=== PATIENT | male | born 1970 | race Caucasian/White ===

== ENCOUNTER 2018-12-28 14:18 | Emergency (ER) | payer MEDICARE, OTHER ==
[~2018-12-28] VITALS: Ht 167.6 cm; Wt 75.0 kg
[~2018-12-28 14:18] MED LIST: DIVA500T52 PO; QUET200T PO; QUET300T2 PO; SERT100T12 PO; TRAZ-252 PO
[2018-12-28] MEDS ORDERED: LORazepam 2 MG TABLET PO ONE ×2 (15:00→22:30)
[2018-12-28] MEDS ORDERED: HALOPERIDOL 5 MG TABLET PO ONE (15:00)
[2018-12-28 15:21] LABS: BASOPHILS % (AUTO) 0.5 % (0.0-2.0); EOSINOPHILS % (AUTO) 0 % (1.0-6.0); HEMATOCRIT 45.4 % (41-53); HEMOGLOBIN 15.3 g/dL (13.5-17.5); LYMPHOCYTES # (AUTO) 1.8 K/uL (1.0-4.8); LYMPHOCYTES % (AUTO) 14.5 % (22.0-44.0); MEAN CORPUSCULAR HEMOGLOBIN 30.6 pg (26.0-34.0); MEAN CORPUSCULAR HGB CONC 33.6 G/dL (31.0-37.0); MEAN CORPUSCULAR VOLUME 91 fL (80-100); MONOCYTES % (AUTO) 8.2 % (2.0-9.0); NEUTROPHILS # (AUTO) 9.6 K/uL (1.8-7.7); NEUTROPHILS % (AUTO) 76.8 % (40.0-70.0); PLATELET COUNT (AUTO) 393 K/uL (150-450); RED BLOOD CELL COUNT(AUTO) 4.99 MIL/uL (4.50-5.90); RED CELL DISTRIBUTION WIDTH 14.2 % (11.5-14.5)
[2018-12-28 15:39] LABS: ANION GAP 12 mmol/L (8-16); CALCIUM, TOTAL 9.6 mg/dL (8.8-10.5); CARBON DIOXIDE 25 mmol/L (22-29); CHLORIDE 105 mmol/L (98-107); CREATININE 1.03 mg/dL (0.60-1.30); GLOMERULAR FILTR. RATE CALC > 60 mL/min (>60); GLUCOSE,RANDOM 117 mg/dL (70-110); POTASSIUM 3.9 mmol/L (3.5-5.1); SODIUM SERUM 142 mmol/L (136-145); UREA NITROGEN, BLOOD 23 mg/dL (7-18)
[2018-12-28 15:45] LABS: ALANINE AMINOTRANSFERASE 35 U/L (12-78); ALBUMIN 4.3 g/dL (3.4-5.0); ALKALINE PHOSPHATASE 79 U/L (46-116); ASPARTATE AMINOTRANSFERASE 97 U/L (15-37); BILIRUBIN,TOTAL 0.5 mg/dL (0.1-1.0); TOTAL PROTEIN, SERUM 7.9 g/dL (6.4-8.2); VALPROIC ACID 74 mcg/mL (50-100)
[2018-12-28 20:32] LABS: AMPHET/METH SCREEN,URINE NEGATIVE (NEGATIVE); BARBITURATE SCREEN, URINE NEGATIVE (NEGATIVE); BENZODIAZEPINES SCREEN,URINE NEGATIVE (NEGATIVE); CANNABINOID SCREEN,URINE NEGATIVE (NEGATIVE); COCAINE SCREEN,URINE NEGATIVE (NEGATIVE); METHADONE SCREEN, URINE NEGATIVE (NEGATIVE); OPIATE SCREEN,URINE NEGATIVE (NEGATIVE); PHENCYCLIDINE SCREEN,URINE NEGATIVE (NEGATIVE)
[2018-12-28 21:00] VITALS: BP 134/80
[2018-12-28] MEDS ORDERED: SERTRALINE HCL 100 MG TABLET PO ONE (22:30)
== END 2018-12-28 23:03 | disposition home or self-care (01) ==
LOC: EMS 14:19
DX: R45.1 Restlessness and agitation (principal); F32.9 Major depressive disorder, single episode, unspecified; F20.9 Schizophrenia, unspecified; Z79.899 Other long term (current) drug therapy
CPT/HCPCS: 36415; 80053; 80164; 80307; 85025; 99284; G0480

== ENCOUNTER 2019-01-29 18:25 | Emergency (ER) | payer MEDICARE, OTHER ==
[~2019-01-29] VITALS: Ht 167.6 cm; Wt 81.8 kg
[2019-01-29] MEDS ORDERED: LORazepam 2 MG/ML VIAL IVP ONE (18:45)
[2019-01-29 19:17] LABS: ANION GAP 14 mmol/L (8-16); CALCIUM, TOTAL 8.7 mg/dL (8.8-10.5); CARBON DIOXIDE 21 mmol/L (22-29); CHLORIDE 104 mmol/L (98-107); CREATININE 1.06 mg/dL (0.60-1.30); GLOMERULAR FILTR. RATE CALC > 60 mL/min (>60); GLUCOSE,RANDOM 162 mg/dL (70-110); POTASSIUM 3.6 mmol/L (3.5-5.1); SODIUM SERUM 139 mmol/L (136-145); UREA NITROGEN, BLOOD 22 mg/dL (7-18)
[2019-01-29 19:23] LABS: VALPROIC ACID 4 mcg/mL (50-100)
[2019-01-29] MEDS ORDERED: VALPROATE SODIUM 1,000 MG in DEXTROSE 5%-WATER 100 ML IV ONE (19:45)
[2019-01-29 21:02] VITALS: BP 123/77
== END 2019-01-29 21:50 | disposition home or self-care (01) ==
LOC: EMS 18:25
DX: G40.802 Other epilepsy, not intractable, without status epilepticus (principal); F32.9 Major depressive disorder, single episode, unspecified; F20.9 Schizophrenia, unspecified; Z79.899 Other long term (current) drug therapy
CPT/HCPCS: 36415; 70450; 80048; 80164; 96365; 96375; 99285; J2060; J3490; J7060

== ENCOUNTER 2019-06-12 18:05 | Inpatient (IN) | payer MEDICARE, MEDICAID ==
[~2019-06-12] VITALS: Ht 165.1 cm; Wt 81.2 kg
[2019-06-12 18:41] LABS: BASOPHILS % (AUTO) 0.8 % (0.0-2.0); EOSINOPHILS % (AUTO) 0.1 % (1.0-6.0); HEMATOCRIT 46.9 % (41-53); HEMOGLOBIN 16.1 g/dL (13.5-17.5); LYMPHOCYTES # (AUTO) 1.6 K/uL (1.0-4.8); LYMPHOCYTES % (AUTO) 15.5 % (22.0-44.0); MEAN CORPUSCULAR HEMOGLOBIN 31.1 pg (26.0-34.0); MEAN CORPUSCULAR HGB CONC 34.2 G/dL (31.0-37.0); MEAN CORPUSCULAR VOLUME 91 fL (80-100); MONOCYTES # (AUTO) 0.8 K/uL (0.1-1.0); MONOCYTES % (AUTO) 7.6 % (2.0-9.0); NEUTROPHILS # (AUTO) 7.7 K/uL (1.8-7.7); PLATELET COUNT (AUTO) 364 K/uL (150-450); RED BLOOD CELL COUNT(AUTO) 5.16 MIL/uL (4.50-5.90); RED CELL DISTRIBUTION WIDTH 13.6 % (11.5-14.5)
[2019-06-12 19:07] LABS: ANION GAP 15 mmol/L (8-16); CARBON DIOXIDE 19 mmol/L (22-29); CHLORIDE 102 mmol/L (98-107); CREATININE 0.92 mg/dL (0.60-1.30); GLOMERULAR FILTR. RATE CALC > 60 mL/min (>60); GLUCOSE,RANDOM 118 mg/dL (70-110); POTASSIUM 3.5 mmol/L (3.5-5.1); SODIUM SERUM 136 mmol/L (136-145); UREA NITROGEN, BLOOD 19 mg/dL (7-18)
[2019-06-12 19:13] LABS: ALANINE AMINOTRANSFERASE 33 U/L (12-78); ALBUMIN 4.4 g/dL (3.4-5.0); ALKALINE PHOSPHATASE 78 U/L (46-116); ASPARTATE AMINOTRANSFERASE 36 U/L (15-37); BILIRUBIN,TOTAL 0.5 mg/dL (0.1-1.0); TOTAL PROTEIN, SERUM 7.8 g/dL (6.4-8.2)
[2019-06-12] MEDS ORDERED: LORazepam 1 MG TABLET PO ONE (20:30)
[2019-06-13] MEDS ORDERED: ZOLPIDEM TARTRATE 10 MG TABLET PO PRN
[2019-06-13] MEDS ORDERED: HALOPERIDOL 5 MG TABLET PO PRN
[2019-06-13 02:20] VITALS: BP 129/81
[2019-06-13 02:58] VITALS: BP 129/81
[2019-06-13] MEDS ORDERED: INFLUENZA VIRUS VACCINE QVS 2019-20 (3YR+)/PF 60 MCG/0.5 ML SYRINGE IM ONE (03:30)
[2019-06-13] MEDS ORDERED: TEMAZEPAM 15 MG CAPSULE PO PRN (06:30)
[2019-06-13 08:00] LABS: HEMOGLOBIN A1C 5.6 % (4.5-6.2)
[2019-06-13 08:35] VITALS: BP 70/50
[2019-06-13 08:40] LABS: CHOL/HDL RATIO 4.7 (4.2-7.3); FREE T4 (FREE THYROXINE) 1.43 ng/dL (0.76-1.46)
[2019-06-13] MEDS: LORazepam 2 MG TABLET PO PRN (14:23)
[2019-06-13 19:17] VITALS: BP 119/62
[2019-06-13] MEDS: QUEtiapine FUMARATE 300 MG TABLET PO SCH (20:38)
[2019-06-13] MEDS: TraZODone HCL 50 MG TABLET PO SCH (20:38)
[2019-06-14] MEDS: SERTRALINE HCL 100 MG TABLET PO SCH (08:23)
[2019-06-14 09:54] VITALS: BP 128/86
[2019-06-14 18:06] VITALS: BP 131/100
[2019-06-14] MEDS: TraZODone HCL 50 MG TABLET PO SCH (21:54)
[2019-06-14] MEDS: QUEtiapine FUMARATE 300 MG TABLET PO SCH (21:54)
[2019-06-15 05:54] VITALS: BP 118/74
[2019-06-15] MEDS: SERTRALINE HCL 100 MG TABLET PO SCH (09:19)
[2019-06-15 12:44] VITALS: BP 132/74
[2019-06-15 16:30] VITALS: BP 136/97
[2019-06-15] MEDS: TraZODone HCL 50 MG TABLET PO SCH (22:08)
[2019-06-15] MEDS: QUEtiapine FUMARATE 300 MG TABLET PO SCH (22:09)
[2019-06-16 01:43] VITALS: BP 125/77
[2019-06-16 08:09] VITALS: BP 119/86
[2019-06-16] MEDS: SERTRALINE HCL 100 MG TABLET PO SCH (10:07)
[2019-06-16] MEDS ORDERED: BISACODYL 5 MG EC TABLET PO PRN (13:45)
[2019-06-16 18:02] VITALS: BP 121/87
[2019-06-16] MEDS: QUEtiapine FUMARATE 300 MG TABLET PO SCH (20:10)
[2019-06-16] MEDS: TraZODone HCL 50 MG TABLET PO SCH (20:11)
[2019-06-17 02:17] VITALS: BP 123/79
[2019-06-17] MEDS: SERTRALINE HCL 100 MG TABLET PO SCH (08:58)
[2019-06-17 09:19] VITALS: BP 133/86
[2019-06-17 19:36] VITALS: BP 138/98
[2019-06-17] MEDS: TraZODone HCL 50 MG TABLET PO SCH (20:23)
[2019-06-17] MEDS: QUEtiapine FUMARATE 300 MG TABLET PO SCH (20:23)
[2019-06-18 05:03] VITALS: BP 132/95
[2019-06-18 08:30] VITALS: BP 126/79
[2019-06-18] MEDS: SERTRALINE HCL 100 MG TABLET PO SCH (09:47)
[2019-06-18] MEDS: LORazepam 2 MG TABLET PO PRN (10:52)
[2019-06-18 16:56] VITALS: BP 117/71
[2019-06-18] MEDS: DIVALPROEX SODIUM 250 MG DR TABLET PO SCH (20:49)
[2019-06-18] MEDS: TraZODone HCL 50 MG TABLET PO SCH (20:49)
[2019-06-18] MEDS: QUEtiapine FUMARATE 300 MG TABLET PO SCH (20:49)
[2019-06-19 08:20] VITALS: BP 104/77
[2019-06-19] MEDS: SERTRALINE HCL 100 MG TABLET PO SCH (09:18)
[2019-06-19] MEDS: DIVALPROEX SODIUM 250 MG DR TABLET PO SCH ×2 (09:19→21:05)
[2019-06-19 19:48] VITALS: BP 126/80
[2019-06-19] MEDS: TraZODone HCL 50 MG TABLET PO SCH (21:05)
[2019-06-19] MEDS: QUEtiapine FUMARATE 300 MG TABLET PO SCH (21:05)
[2019-06-20 00:22] VITALS: BP 122/93
[2019-06-20 08:30] VITALS: BP 122/82
[2019-06-20] MEDS: DIVALPROEX SODIUM 250 MG DR TABLET PO SCH ×2 (08:42→21:04)
[2019-06-20] MEDS: SERTRALINE HCL 100 MG TABLET PO SCH (08:42)
[2019-06-20 16:45] VITALS: BP 115/74
[2019-06-20] MEDS: QUEtiapine FUMARATE 300 MG TABLET PO SCH (21:04)
[2019-06-20] MEDS: TraZODone HCL 50 MG TABLET PO SCH (21:04)
[2019-06-21 00:50] VITALS: BP 116/74
[2019-06-21 09:25] VITALS: BP 134/67
[2019-06-21] MEDS: SERTRALINE HCL 100 MG TABLET PO SCH (09:38)
[2019-06-21] MEDS: DIVALPROEX SODIUM 250 MG DR TABLET PO SCH ×2 (09:38→20:51)
[2019-06-21 20:06] VITALS: BP 122/75
[2019-06-21] MEDS: TraZODone HCL 50 MG TABLET PO SCH (20:50)
[2019-06-21] MEDS: QUEtiapine FUMARATE 300 MG TABLET PO SCH (20:50)
[2019-06-22 08:30] VITALS: BP 103/75
[2019-06-22] MEDS: DIVALPROEX SODIUM 250 MG DR TABLET PO SCH ×2 (08:56→20:58)
[2019-06-22] MEDS: SERTRALINE HCL 100 MG TABLET PO SCH (08:57)
[2019-06-22 17:46] VITALS: BP 112/66
[2019-06-22] MEDS: TraZODone HCL 50 MG TABLET PO SCH (20:57)
[2019-06-22] MEDS: QUEtiapine FUMARATE 300 MG TABLET PO SCH (20:57)
[2019-06-23 08:00] VITALS: BP 146/59
[2019-06-23] MEDS: DIVALPROEX SODIUM 250 MG DR TABLET PO SCH ×2 (09:33→20:38)
[2019-06-23] MEDS: SERTRALINE HCL 100 MG TABLET PO SCH (09:33)
[2019-06-23 18:30] VITALS: BP 120/86
[2019-06-23] MEDS: QUEtiapine FUMARATE 300 MG TABLET PO SCH (20:38)
[2019-06-23] MEDS: TraZODone HCL 50 MG TABLET PO SCH (20:38)
[2019-06-24] MEDS: DIVALPROEX SODIUM 250 MG DR TABLET PO SCH (08:07)
[2019-06-24] MEDS: SERTRALINE HCL 100 MG TABLET PO SCH (08:07)
[2019-06-24 08:55] VITALS: BP 130/80
[2019-06-24] MEDS ORDERED: DIVA-76 PO (12:02)
[2019-06-24] MEDS ORDERED: QUET300T18 PO (12:02)
[2019-06-24] MEDS ORDERED: TRAZ-252 PO (12:02)
[2019-06-24] MEDS ORDERED: SERT100T12 PO (12:02)
== END 2019-06-24 18:30 | disposition home or self-care (01) | DRG 885 ==
LOC: EMS 18:06 → 3EI 06-13 01:10
DX: F25.1 Schizoaffective disorder, depressive type (principal); E78.00 Pure hypercholesterolemia, unspecified; E78.5 Hyperlipidemia, unspecified; F79 Unspecified intellectual disabilities; G40.909 Epilepsy, unspecified, not intractable, without status epilepticus; G80.9 Cerebral palsy, unspecified; J45.909 Unspecified asthma, uncomplicated; G47.00 Insomnia, unspecified; K59.00 Constipation, unspecified; Z79.899 Other long term (current) drug therapy; Z82.49 Family history of ischemic heart disease and other diseases of the circulatory system; Z91.5 Personal history of self-harm
CPT/HCPCS: 83036; 84439; G0480

== ENCOUNTER 2024-02-23 22:04 | Inpatient (IN) | payer MEDICARE, MEDICAID ==
[~2024-02-23] VITALS: Ht 160 cm; Wt 86.1 kg
[~2024-02-23 22:04] MED LIST changes: +DIVA-111 PO; -DIVA500T52 PO; -QUET200T PO; +QUET300T19 PO; -QUET300T2 PO; +SERT-440 PO; -SERT100T12 PO
[2024-02-23 22:40] LABS: EOSINOPHILS % (AUTO) 2.2 % (1.0-6.0); HEMATOCRIT 43.9 % (41-53); HEMOGLOBIN 14.9 g/dL (13.5-17.5); LYMPHOCYTES # (AUTO) 2.7 K/uL (1.0-4.8); LYMPHOCYTES % (AUTO) 39.7 % (22.0-44.0); MEAN CORPUSCULAR HEMOGLOBIN 31.9 pg (26.0-34.0); MEAN CORPUSCULAR HGB CONC 33.9 G/dL (31.0-37.0); MEAN CORPUSCULAR VOLUME 94 fL (80-100); MONOCYTES # (AUTO) 0.6 K/uL (0.1-1.0); MONOCYTES % (AUTO) 9.2 % (2.0-9.0); NEUTROPHILS # (AUTO) 3.3 K/uL (1.8-7.7); NEUTROPHILS % (AUTO) 47.9 % (40.0-70.0); PLATELET COUNT (AUTO) 284 K/uL (150-450); RED BLOOD CELL COUNT(AUTO) 4.66 MIL/uL (4.50-5.90); RED CELL DISTRIBUTION WIDTH 12.9 % (11.5-14.5); WHITE BLOOD COUNT (AUTO) 6.8 K/uL (4.5-11.0)
[2024-02-23 22:49] LABS: ANION GAP 6 mmol/L (8-16); CALCIUM, TOTAL 9.7 mg/dL (8.8-10.5); CARBON DIOXIDE 29 mmol/L (22-29); CHLORIDE 103 mmol/L (98-107); CREATININE 1.12 mg/dL (0.60-1.30); GLOMERULAR FILTR. RATE CALC > 60 mL/min (>60); GLUCOSE,RANDOM 107 mg/dL (70-110); POTASSIUM 4.1 mmol/L (3.5-5.1); SODIUM SERUM 138 mmol/L (136-145); UREA NITROGEN, BLOOD 16 mg/dL (7-18)
[2024-02-23 23:10] LABS: ALCOHOL, BLOOD (SERUM) < 3 mg/dL (0-10)
[2024-02-24 00:30] LABS: COVID AG,FIA SOURCE NASAL SWAB
[2024-02-24 00:58] LABS: SARS-COV2 (COVID) ANTIGEN,FIA Negative (Negative)
[2024-02-24 02:28] LABS: ALCOHOL, URINE DRUG SCREEN NEGATIVE (NEGATIVE); AMPHET/METH SCREEN,URINE NEGATIVE (NEGATIVE); BARBITURATE SCREEN, URINE NEGATIVE (NEGATIVE); BENZODIAZEPINES SCREEN,URINE NEGATIVE (NEGATIVE); CANNABINOID SCREEN,URINE NEGATIVE (NEGATIVE); COCAINE SCREEN,URINE NEGATIVE (NEGATIVE); METHADONE SCREEN, URINE NEGATIVE (NEGATIVE); OPIATE SCREEN,URINE NEGATIVE (NEGATIVE); PHENCYCLIDINE SCREEN,URINE NEGATIVE (NEGATIVE)
[2024-02-24] MEDS ORDERED: HALOPERIDOL 5 MG TABLET PO PRN (02:45)
[2024-02-24 02:53] LABS: APPEARANCE,URINE CLEAR (CLEAR); BILIRUBIN,URINE NEGATIVE (NEGATIVE); COLOR,URINE LIGHT YELLOW (YELLOW); GLUCOSE, URINE (UA) NEGATIVE (NEGATIVE); KETONES,URINE NEGATIVE (NEGATIVE); LEUKOCYTE ESTERASE ,URINE NEGATIVE (NEGATIVE); NITRATE,URINE NEGATIVE (NEGATIVE); OCCULT BLOOD,URINE NEGATIVE (NEGATIVE); PROTEIN,URINE NEGATIVE (NEGATIVE); SPECIFIC GRAVITIY, URINE 1.014 (1.003-1.030); UROBILINOGEN,URINE <=1.0 mg/dL (<=1.0)
[2024-02-24] MEDS ORDERED: BIMA2.5D4 OU (03:21)
[2024-02-24] MEDS ORDERED: QUET200T PO (03:21)
[2024-02-24] MEDS ORDERED: CITA-144 PO (03:21)
[2024-02-24] MEDS ORDERED: TRIA15CR49 TP (03:21)
[2024-02-24] MEDS ORDERED: FLUT16SP NASAL (03:21)
[2024-02-24] MEDS ORDERED: CHLO100T42 PO (03:21)
[2024-02-24] MEDS ORDERED: TRAZ-257 PO (03:21)
[2024-02-24 03:35] VITALS: BP 133/89; PULSE 82; RESP 18; TEMP 98; O2SAT 95
[2024-02-24 05:47] VITALS: BP 133/89; PULSE 82; RESP 18; TEMP 98
[2024-02-24] MEDS ORDERED: LOPERAMIDE HCL 2 MG CAPSULE PO PRN (07:30)
[2024-02-24] MEDS ORDERED: GuaiFENesin/D-METHORPHAN [SUGAR-FREE] 200-20MG/10 ML SYRUP UDCUP PO PRN (07:30)
[2024-02-24] MEDS ORDERED: PROMETHAZINE HCL 25 MG TABLET PO PRN (07:30)
[2024-02-24] MEDS ORDERED: OLANZapine 5 MG RAPDIS TABLET PO PRN (07:30)
[2024-02-24] MEDS ORDERED: TUBERCULIN, PURIFIED PROTEIN DERIVATIVE 5 TU/0.1 ML SYRINGE ID ONE (07:30)
[2024-02-24] MEDS ORDERED: MAGNESIUM HYDROXIDE SUSPENSION 30 ML UDCUP PO PRN (07:30)
[2024-02-24] MEDS ORDERED: ACETAMINOPHEN 325 MG TABLET PO PRN (07:30)
[2024-02-24] MEDS ORDERED: MAG HYDROX/ALUMINUM HYD/SIMETH ES 30 ML SUSPENSION UDCUP PO PRN (07:30)
[2024-02-24 08:30] VITALS: BP 109/71; PULSE 72; RESP 19; TEMP 98.1; O2SAT 95
[2024-02-24] MEDS ORDERED: MELA5TAB40 PO (11:14)
[2024-02-24] MEDS: OMEGA-3/DHA/EPA/FISH OIL 1,000 MG CAPSULE PO SCH (12:32)
[2024-02-24] MEDS: THIAMINE 100 MG TABLET PO SCH (12:32)
[2024-02-24] MEDS: FOLIC ACID 1 MG TABLET PO SCH (12:32)
[2024-02-24] MEDS: MULTIVITAMINS WITH MINERALS, THERAPEUTIC TABLET PO SCH (12:35)
[2024-02-24] MEDS: OLANZapine 5 MG RAPDIS TABLET PO SCH (20:47)
[2024-02-24] MEDS: MELATONIN 5 MG TABLET PO SCH (20:47)
[2024-02-24] MEDS: DIVALPROEX SODIUM 500 MG ER TABLET PO SCH (20:47)
[2024-02-24] MEDS: BIMATOPROST 0.01% 2.5 ML OPHTHALMIC SOLUTION OU SCH (21:00)
[2024-02-24 21:17] VITALS: BP 112/79; PULSE 97; RESP 18; TEMP 97.6; O2SAT 96
[2024-02-24] MEDS: ZOLPIDEM TARTRATE 10 MG TABLET PO PRN (23:43)
[2024-02-25 07:31] LABS: CHOL/HDL RATIO 5.5 (4.2-7.3); FREE T4 (FREE THYROXINE) 1.06 ng/dL (0.76-1.46); THYROID STIMULATING HORMONE 3.18 uIU/mL (0.36-3.74)
[2024-02-25 07:35] LABS: HEMOGLOBIN A1C 5.9 % (3.8-5.6)
[2024-02-25] MEDS: FLUTICASONE PROPIONATE 50 MCG/SPRAY 16 GM NASAL SPRAY NASAL SCH (08:18)
[2024-02-25 08:45] VITALS: BP 142/76; PULSE 82; RESP 18; TEMP 97.6; O2SAT 95
[2024-02-25] MEDS: HydrOXYzine PAMOATE 50 MG CAPSULE PO PRN (21:15)
[2024-02-25] MEDS: LORazepam 2 MG TABLET PO PRN (21:15)
[2024-02-25 21:50] VITALS: BP 145/86; PULSE 82; RESP 18; TEMP 97; O2SAT 95
[2024-02-26 09:45] VITALS: BP 137/100; PULSE 84; RESP 18; TEMP 97.8; O2SAT 96
[2024-02-26] MEDS ORDERED: OLAN5TAB94 PO (15:11)
[2024-02-26] MEDS ORDERED: MELA5TAB40 PO (15:11)
[2024-02-26] MEDS ORDERED: DIVA-153 PO (15:11)
[2024-02-26] MEDS ORDERED: OMEG-135 PO (15:11)
[2024-02-26 20:30] VITALS: BP 134/85; PULSE 84; RESP 18; TEMP 97.8; O2SAT 97
[2024-02-27 08:38] VITALS: BP 119/67; PULSE 90; RESP 18; TEMP 97.9; O2SAT 97
== END 2024-02-27 13:19 | disposition home or self-care (01) | DRG 885 ==
LOC: EMS 22:04 → 3EX 02-24 04:14
PROVIDERS: ADMIT Psychiatry & Neurology Psychiatry; ATTEND Psychiatry & Neurology Psychiatry
PROC: GZHZZZZ Group Psychotherapy (ICD-10-PCS; principal; 2024-02-24)
PROC: GZ51ZZZ Individual Psychotherapy, Behavioral (ICD-10-PCS; 2024-02-24)
PROC: GZ58ZZZ Individual Psychotherapy, Cognitive-Behavioral (ICD-10-PCS; 2024-02-24)
PROC: GZ56ZZZ Individual Psychotherapy, Supportive (ICD-10-PCS; 2024-02-27)
DX: F20.9 Schizophrenia, unspecified (principal); E66.9 Obesity, unspecified; F41.9 Anxiety disorder, unspecified; G80.9 Cerebral palsy, unspecified; G47.00 Insomnia, unspecified; Z20.822 Contact with and (suspected) exposure to COVID-19; G40.909 Epilepsy, unspecified, not intractable, without status epilepticus; F32.A Depression, unspecified; K59.00 Constipation, unspecified; I10 Essential (primary) hypertension; Z55.9 Problems related to education and literacy, unspecified; Z79.899 Other long term (current) drug therapy; Z68.33 Body mass index [BMI] 33.0-33.9, adult
CPT/HCPCS: 80048; 80061; 80164; 80307; 81003; 83036; 84439; 84443; 85025; 86592; 99285; G0378; G0480

== ENCOUNTER 2024-02-29 09:13 | Inpatient (IN) | payer MEDICARE, MEDICAID ==
[~2024-02-29] VITALS: Ht 160 cm; Wt 84.8 kg
[~2024-02-29 09:13] MED LIST changes: +BIMA2.5D4 OU; -DIVA-111 PO; +DIVA-153 PO; +FLUT16SP NASAL; +MELA5TAB40 PO; +OLAN5TAB94 PO; +OMEG-135 PO; -QUET300T19 PO; -SERT-440 PO; -TRAZ-252 PO
[2024-02-29 10:41] LABS: GLUCOMETER DEV NAME(LOC) POC.BV; POC SARS-COV2 AG, FIA NEGATIVE (NEGATIVE)
[2024-02-29 11:53] VITALS: BP 154/89; PULSE 95; RESP 20; TEMP 98.7
[2024-02-29 13:29] VITALS: BP 134/96; PULSE 96; RESP 18; TEMP 97.8; O2SAT 100
[2024-02-29] MEDS ORDERED: LORazepam 1 MG TABLET PO PRN (19:30)
[2024-02-29] MEDS ORDERED: ChlorproMAZINE HCL 100 MG TABLET PO PRN (19:30)
[2024-02-29 20:05] VITALS: BP 142/90; PULSE 98; RESP 17; TEMP 97.4; O2SAT 98
[2024-02-29] MEDS: DIVALPROEX SODIUM 500 MG DR TABLET PO SCH (20:26)
[2024-02-29] MEDS: MELATONIN 5 MG TABLET PO SCH (20:26)
[2024-02-29] MEDS: QUEtiapine FUMARATE 300 MG TABLET PO SCH (20:28)
[2024-02-29] MEDS ORDERED: MAGNESIUM HYDROXIDE SUSPENSION 30 ML UDCUP PO PRN (20:30)
[2024-02-29] MEDS ORDERED: DOCUSATE SODIUM 100 MG CAPSULE PO PRN (20:30)
[2024-02-29] MEDS ORDERED: ONDANSETRON HCL 4 MG TABLET PO PRN (20:30)
[2024-02-29] MEDS ORDERED: ALBUTEROL SULFATE HFA 90 MCG/PUFF 8 GM INHALER IH PRN (20:30)
[2024-02-29] MEDS ORDERED: LOPERAMIDE HCL 2 MG CAPSULE PO PRN (20:30)
[2024-02-29] MEDS ORDERED: BACITRACIN 28 GM OINTMENT TP PRN (20:30)
[2024-02-29] MEDS ORDERED: MAG HYDROX/ALUMINUM HYD/SIMETH ES 30 ML SUSPENSION UDCUP PO PRN (20:30)
[2024-02-29] MEDS ORDERED: BENZOCAINE/MENTHOL LOZENGE PO PRN (20:30)
[2024-02-29] MEDS ORDERED: OMEPRAZOLE 20 MG CAPSULE PO PRN (20:30)
[2024-02-29] MEDS ORDERED: PETROLATUM,WHITE 28 GM JELLY TP PRN (20:30)
[2024-02-29] MEDS ORDERED: CloNIDine HCL 0.1 MG TABLET PO PRN (20:30)
[2024-02-29] MEDS: BIMATOPROST 0.01% 2.5 ML OPHTHALMIC SOLUTION OU SCH (21:00)
[2024-02-29] MEDS ORDERED: MELATONIN 5 MG TABLET PO SCH (21:00)
[2024-02-29] MEDS ORDERED: PNEUMOCOCCAL VACCINE POLYVALENT 0.5 ML SYRINGE [PPSV23] IM. ONE (21:00)
[2024-02-29] MEDS ORDERED: DIVALPROEX SODIUM 500 MG ER TABLET PO SCH (21:00)
[2024-02-29] MEDS ORDERED: OLANZapine 5 MG RAPDIS TABLET PO SCH (21:00)
[2024-02-29] MEDS: ZOLPIDEM TARTRATE 5 MG TABLET PO PRN (22:08)
[2024-03-01] VITALS (12 sets, daily range): BP systolic 109–149; BP diastolic 67–87; PULSE 76–94; RESP 17–18; TEMP 96.8–98.6; O2SAT 95–97
[2024-03-01 07:26] LABS: BASOPHILS % (AUTO) 0.2 % (0.0-2.0); HEMATOCRIT 42.2 % (41-53); HEMOGLOBIN 14.3 g/dL (13.5-17.5); LYMPHOCYTES # (AUTO) 1.4 K/uL (1.0-4.8); LYMPHOCYTES % (AUTO) 22.1 % (22.0-44.0); MEAN CORPUSCULAR HEMOGLOBIN 32.4 pg (26.0-34.0); MEAN CORPUSCULAR HGB CONC 33.8 G/dL (31.0-37.0); MEAN CORPUSCULAR VOLUME 96 fL (80-100); MONOCYTES # (AUTO) 0.6 K/uL (0.1-1.0); MONOCYTES % (AUTO) 9.5 % (2.0-9.0); NEUTROPHILS # (AUTO) 4.2 K/uL (1.8-7.7); NEUTROPHILS % (AUTO) 67.2 % (40.0-70.0); PLATELET COUNT (AUTO) 212 K/uL (150-450); RED CELL DISTRIBUTION WIDTH 13.5 % (11.5-14.5); WHITE BLOOD COUNT (AUTO) 6.2 K/uL (4.5-11.0)
[2024-03-01 08:05] LABS: ALANINE AMINOTRANSFERASE 157 U/L (12-78); ALBUMIN 3.5 g/dL (3.4-5.0); ALKALINE PHOSPHATASE 57 U/L (46-116); ANION GAP 8 mmol/L (8-16); ASPARTATE AMINOTRANSFERASE 428 U/L (15-37); BILIRUBIN,TOTAL 0.5 mg/dL (0.1-1.0); CALCIUM, TOTAL 8.9 mg/dL (8.8-10.5); CARBON DIOXIDE 29 mmol/L (22-29); CHLORIDE 102 mmol/L (98-107); CHOL/HDL RATIO 3.4 (4.2-7.3); CHOLESTEROL 165 mg/dL (131-200); GLOMERULAR FILTR. RATE CALC > 60 mL/min (>60); GLUCOSE,RANDOM 103 mg/dL (70-110); HDL CHOLESTEROL 48 mg/dL (40-60); LDL CHOL (CALC.) 100 mg/dL (0-130); POTASSIUM 3.4 mmol/L (3.5-5.1); SODIUM SERUM 139 mmol/L (136-145); THYROID STIMULATING HORMONE 2.21 uIU/mL (0.36-3.74); TOTAL PROTEIN, SERUM 6.7 g/dL (6.4-8.2); TRIGLYCERIDES 84 mg/dL (15-150); UREA NITROGEN, BLOOD 18 mg/dL (7-18); VALPROIC ACID 144 mcg/mL (50-100)
[2024-03-01 08:34] LABS: APPEARANCE,URINE CLEAR (CLEAR); BILIRUBIN,URINE NEGATIVE (NEGATIVE); COLOR,URINE COLORLESS (YELLOW); GLUCOSE, URINE (UA) NEGATIVE (NEGATIVE); LEUKOCYTE ESTERASE ,URINE NEGATIVE (NEGATIVE); NITRATE,URINE NEGATIVE (NEGATIVE); OCCULT BLOOD,URINE TRACE (NEGATIVE); PH,URINE 5.5 (5.0-8.0); PH,URINE DRUG SCREEN 5.5 (5.0-8.0); PROTEIN,URINE NEGATIVE (NEGATIVE); SPECIFIC GRAVITIY, URINE 1.008 (1.003-1.030); UROBILINOGEN,URINE <=1.0 mg/dL (<=1.0)
[2024-03-01 08:53] LABS: AMPHET/METH SCREEN,URINE NEGATIVE (NEGATIVE); BARBITURATE SCREEN, URINE NEGATIVE (NEGATIVE); BENZODIAZEPINES SCREEN,URINE NEGATIVE (NEGATIVE); CANNABINOID SCREEN,URINE NEGATIVE (NEGATIVE); COCAINE SCREEN,URINE NEGATIVE (NEGATIVE); METHADONE SCREEN, URINE NEGATIVE (NEGATIVE); OPIATE SCREEN,URINE NEGATIVE (NEGATIVE); PHENCYCLIDINE SCREEN,URINE NEGATIVE (NEGATIVE)
[2024-03-01] MEDS ORDERED: DIVALPROEX SODIUM 500 MG DR TABLET PO SCH (09:00)
[2024-03-01 09:06] LABS: BACTERIA,URINE None Seen /HPF (None Seen); RBC,URINE 0-2 /HPF (0-2); WBC,URINE None Seen /HPF (0-5)
[2024-03-01 09:10] LABS: ALCOHOL, URINE DRUG SCREEN NEGATIVE (NEGATIVE)
[2024-03-01] MEDS: FLUTICASONE PROPIONATE 50 MCG/SPRAY 16 GM NASAL SPRAY NASAL SCH (12:54)
[2024-03-01] MEDS: LISINOPRIL 5 MG TABLET PO SCH (13:05)
[2024-03-01] MEDS: IBUPROFEN 600 MG TABLET PO PRN (13:46)
[2024-03-01] MEDS: OMEGA-3/DHA/EPA/FISH OIL 1,000 MG CAPSULE PO SCH (14:31)
[2024-03-01] MEDS: DIVALPROEX SODIUM 500 MG DR TABLET PO SCH (20:38)
[2024-03-01] MEDS: QUEtiapine FUMARATE 100 MG TABLET PO SCH (20:38)
[2024-03-02 08:00] VITALS: BP 142/81; PULSE 81; RESP 16; TEMP 97.7
[2024-03-02] MEDS: QUEtiapine FUMARATE 25 MG TABLET PO PRN (09:29)
[2024-03-02] MEDS: POTASSIUM CHLORIDE 20 MEQ ER TABLET PO ONE (13:06)
[2024-03-02] MEDS: QUEtiapine FUMARATE 300 MG TABLET PO SCH (20:39)
[2024-03-02 20:53] VITALS: BP 113/68; PULSE 91; RESP 18; TEMP 98
[2024-03-02] MEDS: LORazepam 0.5 MG TABLET PO PRN (23:00)
[2024-03-03 09:13] LABS: ALANINE AMINOTRANSFERASE 133 U/L (12-78); ALBUMIN 3.2 g/dL (3.4-5.0); ALKALINE PHOSPHATASE 55 U/L (46-116); ANION GAP 9 mmol/L (8-16); ASPARTATE AMINOTRANSFERASE 172 U/L (15-37); BILIRUBIN,TOTAL 0.7 mg/dL (0.1-1.0); CALCIUM, TOTAL 8.7 mg/dL (8.8-10.5); CARBON DIOXIDE 28 mmol/L (22-29); CHLORIDE 101 mmol/L (98-107); CREATININE 0.83 mg/dL (0.60-1.30); GLOMERULAR FILTR. RATE CALC > 60 mL/min (>60); GLUCOSE,RANDOM 81 mg/dL (70-110); POTASSIUM 3.2 mmol/L (3.5-5.1); SODIUM SERUM 138 mmol/L (136-145); TOTAL PROTEIN, SERUM 6.3 g/dL (6.4-8.2); UREA NITROGEN, BLOOD 18 mg/dL (7-18)
[2024-03-03 12:23] VITALS: BP 130/75; PULSE 87; RESP 18; TEMP 97.8; O2SAT 96
[2024-03-03] MEDS: POTASSIUM CHLORIDE 20 MEQ ER TABLET PO ONE (13:30)
[2024-03-03] MEDS: LORazepam 2 MG/ML VIAL IM ONE (15:17)
[2024-03-03] MEDS: DiphenhydrAMINE HCL 50 MG/ML VIAL IM ONE (15:18)
[2024-03-03] MEDS ORDERED: ZOLPIDEM TARTRATE 10 MG TABLET PO PRN (17:45)
[2024-03-03] MEDS: ChlorproMAZINE HCL 50 MG/2 ML AMP IM ONE (18:08)
[2024-03-03 20:30] VITALS: BP 146/84; PULSE 76; RESP 18; TEMP 98; O2SAT 95
[2024-03-03] MEDS: QUEtiapine FUMARATE 200 MG TABLET PO SCH (20:41)
[2024-03-04 02:07] LABS: HEPATITIS A ANTIBODY IGM Negative (Negative); HEPATITIS B CORE IGM Negative (Negative); HEPATITIS C AB (EIA) Non Reactive (Non Reactive)
[2024-03-04 08:39] VITALS: BP 142/96; PULSE 89; RESP 17; TEMP 97.3; O2SAT 94
[2024-03-04] MEDS: ACETAMINOPHEN 325 MG TABLET PO PRN (19:52)
[2024-03-04 20:41] VITALS: BP 149/119; PULSE 75; RESP 19; TEMP 96.8; O2SAT 95
[2024-03-04] MEDS: MIRTAZAPINE 15 MG TABLET PO SCH (20:44)
[2024-03-04] MEDS: QUEtiapine FUMARATE 300 MG TABLET PO SCH (20:44)
[2024-03-04] MEDS: ESZOPICLONE 3 MG TABLET PO SCH (20:44)
[2024-03-04 22:10] VITALS: BP 131/79; RESP 18; O2SAT 92
[2024-03-05 00:01] LABS: GLUCOMETER DEV NAME(LOC) BV2X.3; GLUCOSE,POINT OF CARE 178 MG/DL (70-110)
[2024-03-05] MEDS ORDERED: OLANZapine 5 MG RAPDIS TABLET PO PRN (09:30)
[2024-03-05 09:39] VITALS: BP 141/86; PULSE 80; RESP 20; TEMP 96.3; O2SAT 95
[2024-03-05 12:10] VITALS: O2SAT 92
[2024-03-05 12:30] VITALS: BP 149/71; PULSE 91; RESP 18; TEMP 96.3; O2SAT 91
[2024-03-05] MEDS ORDERED: QUEtiapine FUMARATE 200 MG TABLET PO SCH (21:00)
[2024-03-06] MEDS ORDERED: MULTIVITAMINS WITH MINERALS, THERAPEUTIC TABLET PO SCH (09:00)
== END 2024-03-06 00:54 | disposition short-term general hospital (02) | DRG 885 ==
LOC: B2X 10:09
PROVIDERS: ADMIT Psychiatry & Neurology Psychiatry; ATTEND Psychiatry & Neurology Psychiatry
PROC: GZ56ZZZ Individual Psychotherapy, Supportive (ICD-10-PCS; 2024-03-01)
PROC: GZHZZZZ Group Psychotherapy (ICD-10-PCS; principal; 2024-03-05)
PROC: GZ51ZZZ Individual Psychotherapy, Behavioral (ICD-10-PCS; 2024-03-05)
DX: F25.0 Schizoaffective disorder, bipolar type (principal); F41.9 Anxiety disorder, unspecified; G47.00 Insomnia, unspecified; F30.9 Manic episode, unspecified; R07.9 Chest pain, unspecified; E66.9 Obesity, unspecified; I10 Essential (primary) hypertension; G40.909 Epilepsy, unspecified, not intractable, without status epilepticus; G80.9 Cerebral palsy, unspecified; K59.00 Constipation, unspecified; Z20.822 Contact with and (suspected) exposure to COVID-19; Z68.33 Body mass index [BMI] 33.0-33.9, adult
CPT/HCPCS: 80053; 80061; 80074; 80164; 80307; 81001; 82962; 84132; 84439; 84443; 85025; 86592; 87081; J1200; J2060; J3230

== ENCOUNTER 2024-03-01 07:43 | Emergency (ER) | payer MEDICARE, OTHER ==
[~2024-03-01] VITALS: Ht 162.6 cm; Wt 74.0 kg
[2024-03-01 10:04] VITALS: BP 104/55; PULSE 101; RESP 16; TEMP 97.7
== END 2024-03-01 12:24 ==
LOC: EMS 07:43
DX: S09.90XA Unspecified injury of head, initial encounter (principal); F20.9 Schizophrenia, unspecified; F32.A Depression, unspecified; G80.9 Cerebral palsy, unspecified; W19.XXXA Unspecified fall, initial encounter; Y93.89 Activity, other specified; Y92.89 Other specified places as the place of occurrence of the external cause; Y99.8 Other external cause status
CPT/HCPCS: 70450; 72125; 99284

== ENCOUNTER 2024-03-05 00:39 | Emergency (ER) | payer MEDICARE, OTHER ==
[~2024-03-05] VITALS: Ht 175.3 cm; Wt 100.0 kg
[2024-03-05 00:48] VITALS: TEMP 98
[2024-03-05] MEDS: DiphenhydrAMINE HCL 50 MG/ML VIAL IM ONE (02:33)
[2024-03-05] MEDS: LORazepam 2 MG/ML VIAL IM ONE (02:33)
[2024-03-05] MEDS: HALOPERIDOL LACTATE 5 MG/ML VIAL IM ONE (02:34)
[2024-03-05 03:05] LABS: BASOPHILS % (AUTO) 0.6 % (0.0-2.0); HEMATOCRIT 39.1 % (41-53); HEMOGLOBIN 13.3 g/dL (13.5-17.5); LYMPHOCYTES # (AUTO) 1.4 K/uL (1.0-4.8); LYMPHOCYTES % (AUTO) 29.9 % (22.0-44.0); MEAN CORPUSCULAR HEMOGLOBIN 32.8 pg (26.0-34.0); MEAN CORPUSCULAR HGB CONC 33.9 G/dL (31.0-37.0); MEAN CORPUSCULAR VOLUME 97 fL (80-100); MONOCYTES # (AUTO) 0.8 K/uL (0.1-1.0); MONOCYTES % (AUTO) 15.8 % (2.0-9.0); NEUTROPHILS # (AUTO) 2.5 K/uL (1.8-7.7); NEUTROPHILS % (AUTO) 51.7 % (40.0-70.0); PLATELET COUNT (AUTO) 209 K/uL (150-450); RED BLOOD CELL COUNT(AUTO) 4.04 MIL/uL (4.50-5.90); RED CELL DISTRIBUTION WIDTH 13.9 % (11.5-14.5); WHITE BLOOD COUNT (AUTO) 4.8 K/uL (4.5-11.0)
[2024-03-05 03:24] LABS: ALCOHOL, BLOOD (SERUM) < 3 mg/dL (0-10); ANION GAP 12 mmol/L (8-16); CALCIUM, TOTAL 8.5 mg/dL (8.8-10.5); CARBON DIOXIDE 25 mmol/L (22-29); CHLORIDE 104 mmol/L (98-107); CREATININE 0.93 mg/dL (0.60-1.30); GLOMERULAR FILTR. RATE CALC > 60 mL/min (>60); GLUCOSE,RANDOM 148 mg/dL (70-110); POTASSIUM 3.2 mmol/L (3.5-5.1); SODIUM SERUM 141 mmol/L (136-145); UREA NITROGEN, BLOOD 16 mg/dL (7-18)
[2024-03-05] MEDS: ZIPRASIDONE MESYLATE 20 MG/VIAL IM ONE (04:14)
[2024-03-05 05:47] LABS: COVID AG,FIA SOURCE NASAL SWAB
[2024-03-05 06:09] LABS: SARS-COV2 (COVID) ANTIGEN,FIA Negative (Negative)
[2024-03-05 09:18] VITALS: BP 138/77; PULSE 72; RESP 16
== END 2024-03-05 09:21 | disposition admitted as inpatient to this hospital (09) ==
LOC: EMS 00:39
DX: S09.90XA Unspecified injury of head, initial encounter (principal); F20.9 Schizophrenia, unspecified; Z79.899 Other long term (current) drug therapy; Z20.822 Contact with and (suspected) exposure to COVID-19; W22.8XXA Striking against or struck by other objects, initial encounter; Y93.89 Activity, other specified; Y92.89 Other specified places as the place of occurrence of the external cause; Y99.8 Other external cause status
CPT/HCPCS: 99285; 70450; 87426; 80048; 85025; 36415; 96372; G0480; J1200; J1630; J2060; J3486

== ENCOUNTER 2024-08-19 04:33 | Inpatient (IN) | payer MEDICARE, MEDICAID ==
[~2024-08-19] VITALS: Ht 165.1 cm; Wt 80.0 kg
[~2024-08-19 04:33] MED LIST changes: -DIVA-153 PO; +MIRT-149 PO; -OLAN5TAB94 PO; +QUET200T30 PO; +ZALE5CAP6 PO
[2024-08-19] MEDS ORDERED: CITA-144 PO (05:45)
[2024-08-19] MEDS ORDERED: MIRT-89 PO (05:45)
[2024-08-19 06:16] LABS: BASOPHILS % (AUTO) 0.3 % (0.0-2.0); EOSINOPHILS % (AUTO) 0.3 % (1.0-6.0); HEMATOCRIT 40.9 % (41-53); HEMOGLOBIN 14.4 g/dL (13.5-17.5); LYMPHOCYTES # (AUTO) 0.5 K/uL (1.0-4.8); MEAN CORPUSCULAR HEMOGLOBIN 32.6 pg (26.0-34.0); MEAN CORPUSCULAR HGB CONC 35.3 G/dL (31.0-37.0); MEAN CORPUSCULAR VOLUME 93 fL (80-100); MONOCYTES # (AUTO) 0.8 K/uL (0.1-1.0); MONOCYTES % (AUTO) 8.9 % (2.0-9.0); NEUTROPHILS # (AUTO) 7.9 K/uL (1.8-7.7); PLATELET COUNT (AUTO) 245 K/uL (150-450); RED BLOOD CELL COUNT(AUTO) 4.42 MIL/uL (4.50-5.90); RED CELL DISTRIBUTION WIDTH 13.2 % (11.5-14.5); WHITE BLOOD COUNT (AUTO) 9.3 K/uL (4.5-11.0)
[2024-08-19 06:19] LABS: NEUTROPHILS % (AUTO) 85.5 % (40.0-70.0)
[2024-08-19 06:34] LABS: ANION GAP 9 mmol/L (8-16); CARBON DIOXIDE 25 mmol/L (22-29); CHLORIDE 100 mmol/L (98-107); GLOMERULAR FILTR. RATE CALC > 60 mL/min (>60); GLUCOSE,RANDOM 120 mg/dL (70-110); POTASSIUM 3.3 mmol/L (3.5-5.1); SODIUM SERUM 134 mmol/L (136-145); UREA NITROGEN, BLOOD 13 mg/dL (7-18)
[2024-08-19 06:37] LABS: ALCOHOL, BLOOD (SERUM) < 3 mg/dL (0-10)
[2024-08-19 06:53] LABS: RBC MORPHOLOGY COMMENT NORMAL RBC MORPH
[2024-08-19] MEDS: POTASSIUM CHLORIDE 20 MEQ ER TABLET PO ONE (07:46)
[2024-08-19] MEDS ORDERED: ZOLPIDEM TARTRATE 10 MG TABLET PO PRN (09:00)
[2024-08-19] MEDS ORDERED: OLANZapine 5 MG RAPDIS TABLET PO PRN (09:00)
[2024-08-19] MEDS ORDERED: LORazepam 2 MG TABLET PO PRN (09:00)
[2024-08-19] MEDS: LORazepam 1 MG TABLET PO ONE (09:16)
[2024-08-19] MEDS: HALOPERIDOL 5 MG TABLET PO ONE (09:16)
[2024-08-19 09:42] LABS: COVID AG,FIA SOURCE NASAL SWAB
[2024-08-19 10:19] LABS: SARS-COV2 (COVID) ANTIGEN,FIA Negative (Negative)
[2024-08-19 12:54] VITALS: O2SAT 94
[2024-08-19 13:51] VITALS: BP 148/82; PULSE 83; RESP 18; TEMP 98.9; O2SAT 98
[2024-08-19] MEDS ORDERED: QUEtiapine FUMARATE 100 MG TABLET PO PRN (17:30)
[2024-08-19] MEDS ORDERED: LOPERAMIDE HCL 2 MG CAPSULE PO PRN (17:30)
[2024-08-19] MEDS ORDERED: MAGNESIUM HYDROXIDE SUSPENSION 30 ML UDCUP PO PRN (17:30)
[2024-08-19] MEDS ORDERED: HydrOXYzine PAMOATE 50 MG CAPSULE PO PRN (17:30)
[2024-08-19] MEDS ORDERED: PROMETHAZINE HCL 25 MG TABLET PO PRN (17:30)
[2024-08-19] MEDS ORDERED: MAG HYDROX/ALUMINUM HYD/SIMETH ES 30 ML SUSPENSION UDCUP PO PRN (17:30)
[2024-08-19] MEDS ORDERED: ACETAMINOPHEN 325 MG TABLET PO PRN (17:30)
[2024-08-19 20:32] VITALS: BP 127/88; PULSE 83; RESP 18; TEMP 97.5; O2SAT 95
[2024-08-19] MEDS: MIRTAZAPINE 15 MG TABLET PO SCH (21:13)
[2024-08-19] MEDS: QUEtiapine FUMARATE 200 MG TABLET PO SCH (21:13)
[2024-08-19] MEDS: MELATONIN 5 MG TABLET PO SCH (21:13)
[2024-08-20 07:57] LABS: HEMOGLOBIN A1C 5.8 % (3.8-5.6)
[2024-08-20 08:04] LABS: CHOL/HDL RATIO 3.3 (4.2-7.3); POTASSIUM 3.5 mmol/L (3.5-5.1)
[2024-08-20] MEDS: THIAMINE 100 MG TABLET PO SCH (09:43)
[2024-08-20] MEDS: MULTIVITAMINS WITH MINERALS, THERAPEUTIC TABLET PO SCH (09:43)
[2024-08-20] MEDS: FOLIC ACID 1 MG TABLET PO SCH (09:44)
[2024-08-20 13:19] VITALS: BP 93/60; PULSE 82; RESP 18; TEMP 97; O2SAT 95
[2024-08-20 20:00] VITALS: BP 109/68; PULSE 94; RESP 18; TEMP 98.1; O2SAT 96
[2024-08-20] MEDS: PRAZOSIN HCL 1 MG CAPSULE PO SCH (20:19)
[2024-08-20] MEDS: GuaiFENesin/D-METHORPHAN [SUGAR-FREE] 200-20MG/10 ML SYRUP UDCUP PO PRN (21:31)
[2024-08-20 21:56] LABS: GLUCOMETER DEV NAME(LOC) 3E.C; GLUCOSE,POINT OF CARE 122 MG/DL (70-110)
[2024-08-21 09:05] VITALS: BP 113/76; PULSE 71; RESP 18; TEMP 98.1; O2SAT 95
[2024-08-21 21:48] VITALS: BP 118/81; PULSE 64; RESP 18; TEMP 98.4; O2SAT 94
[2024-08-22 13:49] VITALS: BP 120/73; PULSE 83; RESP 19; TEMP 98; O2SAT 95
[2024-08-22] MEDS: SERTRALINE HCL 100 MG TABLET PO SCH (16:45)
[2024-08-22] MEDS: MELATONIN 5 MG TABLET PO SCH (21:32)
[2024-08-22] MEDS: TraZODone HCL 100 MG TABLET PO SCH (21:32)
[2024-08-22] MEDS: QUEtiapine FUMARATE 200 MG TABLET PO SCH (21:33)
[2024-08-22 21:42] VITALS: BP 147/71; PULSE 67; RESP 18; TEMP 98.2; O2SAT 96
[2024-08-23 08:00] VITALS: BP 90/80; PULSE 81; RESP 18; TEMP 97.7; O2SAT 98
[2024-08-23] MEDS ORDERED: SERT-440 PO (18:01)
[2024-08-23] MEDS ORDERED: MIRT-89 PO (18:01)
[2024-08-23] MEDS ORDERED: TRAZ-257 PO (18:01)
[2024-08-23] MEDS ORDERED: PRAZ1 PO (18:01)
[2024-08-23] MEDS ORDERED: QUET200T30 PO (18:01)
[2024-08-23 21:21] VITALS: BP 122/98; PULSE 99; RESP 18; TEMP 97.8; O2SAT 94
[2024-08-24 09:09] VITALS: BP 113/79; PULSE 105; RESP 18; TEMP 98.9; O2SAT 95
== END 2024-08-24 11:25 | disposition home or self-care (01) | DRG 885 ==
LOC: EMS 04:34 → EDBEDREQ 10:49 → 3EX 12:48
PROVIDERS: ADMIT Psychiatry & Neurology Psychiatry; ATTEND Psychiatry & Neurology Psychiatry
PROC: GZHZZZZ Group Psychotherapy (ICD-10-PCS; principal; 2024-08-19)
PROC: GZ58ZZZ Individual Psychotherapy, Cognitive-Behavioral (ICD-10-PCS; 2024-08-19)
PROC: GZ56ZZZ Individual Psychotherapy, Supportive (ICD-10-PCS; 2024-08-19)
DX: F25.0 Schizoaffective disorder, bipolar type (principal); F79 Unspecified intellectual disabilities; R45.851 Suicidal ideations; Z20.822 Contact with and (suspected) exposure to COVID-19; F41.0 Panic disorder [episodic paroxysmal anxiety]; G40.409 Other generalized epilepsy and epileptic syndromes, not intractable, without status epilepticus; G47.00 Insomnia, unspecified; T50.906A Underdosing of unspecified drugs, medicaments and biological substances, initial encounter; G80.9 Cerebral palsy, unspecified; Z55.9 Problems related to education and literacy, unspecified; Z59.9 Problem related to housing and economic circumstances, unspecified; Z63.9 Problem related to primary support group, unspecified; Z65.3 Problems related to other legal circumstances; Z79.899 Other long term (current) drug therapy; Z91.148 Patient's other noncompliance with medication regimen for other reason; Y92.9 Unspecified place or not applicable
CPT/HCPCS: 71045; 80048; 80061; 82962; 83036; 84132; 85025; 99285; G0378; G0480; 36415-L1; 36415-TC